=== PATIENT | female | born 1950 | race Caucasian/White ===

== ENCOUNTER → 2016-09-13 | Outpatient (CLI) | payer MEDICARE ==
--- NOTE | 2016-09-13 15:20 | CTL ---
EXAMINATION TYPE: CT Low Dose Lung DATE OF EXAM ORDERED: 09/13/2016 1:58 PM COMPARISON: None HISTORY: . Low Dose CT Lung Screening CT DLP: [address] CTDI: 2.6 mGy IV CONTRAST USED: None. SCREENING VISIT: First visit COMPARISON: None. TECHNIQUE: Low dose computed tomography scan was performed through the chest at 1 millimeter thick se ctions and reconstructed images in the coronal plane at [address] DIAGNOSTIC QUALITY: Satisfactory FINDINGS: LUNG NODULES: Not presentLeft lung: no nodules identified.Right lung: no nodules identified. LUNGS: COPD: Severity: None Fibrosis: Severity:None Lymph nodes: None Other findings: None RIGHT PLEURAL SPACE: Effusion: None Calcification: None Thickening: None Pneumothorax: None LEFT PLEURAL SPACE: Effusion: None Calcification: None Thickening: None Pneumothorax: None HEART: Heart Size: Mildly enlarged Coronary calcification: Mild Pericardial effusion: None OTHER FINDINGS: Upper abdomen: No significant abnormality Bony thorax: Degenerative changes Supraclavicular region: No significant abnormalityOther: No significant abnormalityI IMPRESSION: Benign FOLLOW UP CT CHEST RECOMMENDATION: Follow-up screening in one year CT LUNG RAD: Negative LUNG RAD CATEGORY 1
== END ==
LOC: RADCTMAIN 13:30
PROVIDERS: ATTEND Family Medicine
DX: Z12.0 Encounter for screening for malignant neoplasm of stomach (principal); Z87.891 Personal history of nicotine dependence

== ENCOUNTER → 2019-02-21 | Outpatient (CLI) | payer MEDICARE, OTHER ==
[2019-02-21 18:05] LABS: Basophils % (A) 1 %; Eosinophils # (A) 0.3 k/uL (0-0.7); Eosinophils % (A) 5 %; HCT 33.8 % (34.0-46.0); HGB 10.8 gm/dL (11.4-16.0); Lymphocytes # (A) 1.5 k/uL (1.0-4.8); Lymphocytes % (A) 23 %; MCH 30.5 pg (25.0-35.0); MCHC 32.1 g/dL (31.0-37.0); MCV 94.8 fL (80.0-100.0); Mean Platelet Volume 6.9; Monocytes # (A) 0.5 k/uL (0-1.0); Monocytes % (A) 7 %; Neutrophils % (A) 62 %; Platelet Count 216 k/uL (150-450); RBC 3.56 m/uL (3.80-5.40); RDW 14.7 % (11.5-15.5); WBC 6.5 k/uL (3.8-10.6)
[2019-02-22 00:58] LABS: African American GFR (CKD) 60.6 (60.0-200.0); Albumin 4.1 g/dL (3.80-4.90); Albumin/Globulin Ratio 2.16 (1.60-3.17); Anion Gap 4.4 mmol/L (4.00-12.00); BUN/Creat Ratio 26.36 Ratio (12.00-20.00); Calcium 10.2 mg/dL (8.7-10.3); Carbon Dioxide 22.6 mmol/L (21.6-31.8); Globulin 1.9 g/dL (1.6-3.3); Potassium 5.2 mmol/L (3.5-5.5); Total Bilirubin 0.3 mg/dL (0.3-1.2)
== END | disposition home or self-care (01) ==
LOC: LABWHC1 17:20
PROVIDERS: ATTEND Family Medicine
DX: D64.9 Anemia, unspecified (principal); E11.9 Type 2 diabetes mellitus without complications; R53.83 Other fatigue; E03.9 Hypothyroidism, unspecified; Z79.899 Other long term (current) drug therapy
CPT/HCPCS: 36415; 80053; 84443; 85025

== ENCOUNTER → 2019-06-18 | Outpatient (CLI) | payer MEDICARE ==
--- NOTE | 2019-06-18 16:55 | CT ---
EXAMINATION TYPE: CT abdomen pelvis wo con DATE OF EXAM: 06/18/2019 COMPARISON: None HISTORY: Gross hematuria and right sided flank pain. CT DLP: 634 mGycm Automated exposure control for dose reduction was used. The lung bases are clear. There is no pleural effusion. Heart size is normal. There is no pericardial effusion. Liver spleen pancreas appear normal. There are clips from cholecystectomy. Bile ducts are not dilated . There is no adrenal mass. Kidneys have normal size. There is no hydronephrosis. Ureters are not dil ated. Normal aorta is atheromatous. There is no retroperitoneal adenopathy. Bladder distends smoothly . There is right hip prosthesis. There are numerous diverticula in the sigmoid colon. I see no sign o f diverticulitis. There is no mesenteric edema. There is no ascites or free air. Appendix appears normal. There is no s ign of a bowel obstruction. There is posterior fusion surgery in the lower lumbar spine on the right side. There is multilevel lumbar spondylotic changes. There is no compression fracture. IMPRESSION: Sigmoid diverticulosis without diverticulitis. No renal stone or obstruction. Normal appendix. No jabari dence of right-sided renal obstruction. Evaluation of bladder limited due to metal artifact.
== END | disposition home or self-care (01) ==
LOC: RADCTMAIN 16:14
PROVIDERS: ATTEND Family Medicine
DX: K57.30 Diverticulosis of large intestine without perforation or abscess without bleeding (principal); R31.0 Gross hematuria
CPT/HCPCS: 74176

== ENCOUNTER 2019-06-21 15:46 | Emergency (ER) | payer MEDICARE ==
[2019-06-21] MEDS ORDERED: SODIUM CHLORIDE 0.9% 1,000 ML IV STA (16:25)
--- NOTE | 2019-06-21 16:28 | ED ---
General Adult HPI - General Chief complaint: GI Bleed Stated complaint: need blood transfusion Time Seen by Provider: 06/21/19 15:50 Source: patient Mode of arrival: ambulatory Limitations: no limitations - History of Present Illness Initial comments: The patient is a 68-year-old female with past medical history of diabetes, COPD and hypertension who presents to the emergency department with reported low hemoglobin. Earlier this week she began having significant hematuria. She follow-up with her primary care physician who completed laboratory studies. He also completed a urinalysis which showed that the patient had a urinary tract infection. She was placed on Bactrim. They sent her for a CT for abdomen and pelvis because of the hematuria. It did not demonstrate any kidney stones or masses. Has been taking medications as directed. Then received a call from her primary care doctor who stated that her hemoglobin was 7.3. They instructed her to go into the emergency department for further evaluation. She denies a previous history of anemia. She started herself on iron tablets. States that her urine has cleared up. Culture was sent from the primary care physician office and the patient was also told today that it was not sensitive to Bactrim. 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 She denies any black or tarry stools. No abdominal pain. Has had 2 previous endoscopies. Reported history of polyps however denies any history of peptic ulcer disease. She does feel short of breath and lightheaded. She denies any chest pain. Denies any fevers or chills. There are no alleviating, precipitating or modifying factors - Related Data Allergies Allergy/AdvReac Type Severity Reaction Status Date / Time No Known Allergies Allergy Verified 06/21/19 15:54 Review of Systems ROS Statement: Those systems with pertinent positive or pertinent negative responses have been documented in the HPI. ROS Other: All systems not noted in ROS Statement are negative. Past Medical History Past Medical History: COPD, Diabetes Mellitus, Hypertension History of Any Multi-Drug Resistant Organisms: None Reported Past Surgical History: Cholecystectomy, Joint Replacement, Orthopedic Surgery Additional Past Surgical History / Comment(s): Back Past Psychological History: No Psychological Hx Reported Smoking Status: Current every day smoker Past Alcohol Use History: None Reported Past Drug Use History: None Reported General Exam Limitations: no limitations General appearance: alert, in no apparent distress Head exam: Present: atraumatic, normocephalic, normal inspection Eye exam: Present: normal appearance, PERRL, EOMI. Absent: scleral icterus, conjunctival injection, periorbital swelling ENT exam: Present: normal exam, mucous membranes moist Neck exam: Present: normal inspection. Absent: tenderness, meningismus, lymphadenopathy Respiratory exam: Present: normal lung sounds bilaterally. Absent: respiratory distress, wheezes, rales, rhonchi, stridor Cardiovascular Exam: Present: regular rate, normal rhythm, normal heart sounds. Absent: systolic murmur, diastolic murmur, rubs, gallop, clicks GI/Abdominal exam: Present: soft, normal bowel sounds. Absent: distended, tenderness, guarding, rebound, rigid Extremities exam: Present: normal inspection, full ROM, normal capillary refill. Absent: tenderness, pedal edema, joint swelling, calf tenderness Back exam: Present: normal inspection Neurological exam: Present: alert, oriented X3, CN II-XII intact Psychiatric exam: Present: normal affect, normal mood Skin exam: Present: warm, dry, intact, normal color. Absent: rash Course Vital Signs 06/21/19 06/21/19 06/21/19 15:51 19:14 19:25 Temperature 97.8 F 98.2 F 98.0 F Pulse Rate 64 61 59 L Respiratory 16 18 16 Rate Blood Pressure 110/44 139/63 139/63 O2 Sat by Pulse 99 Oximetry 06/21/19 06/21/19 19:55 21:33 Temperature 98.7 F 98.2 F Pulse Rate 70 72 Respiratory 20 20 Rate Blood Pressure 139/48 137/78 O2 Sat by Pulse 98 Oximetry Medical Decision Making - Medical Decision Making Upon arrival the patient is placed into room 7. A thorough history and physical exam is performed. PIV was established. I did perform a rectal exam which does not demonstrate any gross blood. I did recommend repeating laboratory studies for which the patient did agree to. CBC does return and hemoglobin is 7.1. PTT 21.9. INR 0.9. Glucose is low at 50. Iron 32. Iron percent saturation is 6.9. Urinalysis shows trace protein, moderate blood, large leukocyte Estrace, 59 red blood cells, greater than 182 white blood cells many white blood cell clumps and moderate bacteria and rare mucous. Fecal occult is negative. I did provide the patient with a dose of Rocephin. As the patient is symptomatic from her acute blood loss anemia I did provide her with one unit of blood. The patient did have a CT of her abdomen and pelvis performed which failed to demonstrate the bladder because of her hip replacement. I therefore completed a ladder ultrasound which demonstrates no evidence of a bladder mass. I reevaluated the patient after blood transfusion. She states that she does feel improved. At this time the patient feels comfortable being discharged home and is to follow-up with her primary care physician. She must see them early next week to have a repeat hemoglobin drawn. The patients physician will also have availability for the iron studies were completed. The patient is to continue taking the iron supplementation at home. Return to the emergency room for any new or worsening symptoms. The patient was and discharged home in stable condition - Lab Data Result diagrams: 06/21/19 16:30 06/21/19 16:30 Lab Results 06/21/19 06/21/19 06/21/19 Range/Units 16:20 16:30 16:30 WBC 7.8 (3.8-10.6) k/uL RBC 2.80 L (3.80-5.40) m/uL Hgb 7.1 L (11.4-16.0) gm/dL Hct 23.4 L (34.0-46.0) % MCV 83.7 (80.0-100.0) fL MCH 25.5 (25.0-35.0) pg MCHC 30.4 L (31.0-37.0) g/dL RDW 17.7 H (11.5-15.5) % Plt Count 259 (150-450) k/uL Neutrophils % 66 % Lymphocytes % 19 % Monocytes % 8 % Eosinophils % 3 % Basophils % 1 % Neutrophils # 5.1 (1.3-7.7) k/uL Lymphocytes # 1.5 (1.0-4.8) k/uL Monocytes # 0.6 (0-1.0) k/uL Eosinophils # 0.2 (0-0.7) k/uL Basophils # 0.0 (0-0.2) k/uL Hypochromasia Marked Poikilocytosis Slight Anisocytosis Slight PT (9.0-12.0) sec INR (<1.2) APTT (22.0-30.0) sec Sodium 138 (137-145) mmol/L Potassium 4.7 (3.5-5.1) mmol/L Chloride 111 H (98-107) mmol/L Carbon Dioxide 19 L (22-30) mmol/L Anion Gap 8 mmol/L BUN 27 H (7-17) mg/dL Creatinine 1.11 H (0.52-1.04) mg/dL Est GFR (CKD-EPI)AfAm 60 (>60 ml/min/1.73 sqM) Est GFR (CKD-EPI)NonAf 52 (>60 ml/min/1.73 sqM) Glucose 50 L (74-99) mg/dL Calcium 9.9 (8.4-10.2) mg/dL Iron 32 L (50-170) ug/dL TIBC 460 (228-460) ug/dL % Saturation 6.96 L (12.00-45.00) Total Bilirubin 0.3 (0.2-1.3) mg/dL AST 29 (14-36) U/L ALT 17 (4-34) U/L Alkaline Phosphatase 47 (38-126) U/L Total Protein 6.6 (6.3-8.2) g/dL Albumin 3.9 (3.5-5.0) g/dL Urine Color Urine Appearance (Clear) Urine pH (5.0-8.0) Ur Specific Glidden (1.001-1.035) Urine Protein (Negative) Urine Glucose (UA) (Negative) Urine Ketones (Negative) Urine Blood (Negative) Urine Nitrite (Negative) Urine Bilirubin (Negative) Urine Urobilinogen (<2.0) mg/dL Ur Leukocyte Esterase (Negative) Urine RBC (0-5) /hpf Urine WBC (0-5) /hpf Urine WBC Clumps (None) /hpf Ur Squamous Epith Cells (0-4) /hpf Urine Bacteria (None) /hpf Hyaline Casts (0-2) /lpf Urine Mucus (None) /hpf Stool Occult Blood (Negative) Blood Type A Positive Blood Type Recheck A Pos Bld Type Recheck Status No Antibody Screen NEGATIVE Crossmatch See Detail Spec Expiration Date 06/24/2019 - 232906/21/19 06/21/19 06/21/19 Range/Units 16:30 16:30 16:30 WBC (3.8-10.6) k/uL RBC (3.80-5.40) m/uL Hgb (11.4-16.0) gm/dL Hct (34.0-46.0) % MCV (80.0-100.0) fL MCH (25.0-35.0) pg MCHC (31.0-37.0) g/dL RDW (11.5-15.5) % Plt Count (150-450) k/uL Neutrophils % % Lymphocytes % % Monocytes % % Eosinophils % % Basophils % % Neutrophils # (1.3-7.7) k/uL Lymphocytes # (1.0-4.8) k/uL Monocytes # (0-1.0) k/uL Eosinophils # (0-0.7) k/uL Basophils # (0-0.2) k/uL Hypochromasia Poikilocytosis Anisocytosis PT 9.7 (9.0-12.0) sec INR 0.9 (<1.2) APTT 21.9 L (22.0-30.0) sec Sodium (137-145) mmol/L Potassium (3.5-5.1) mmol/L Chloride (98-107) mmol/L Carbon Dioxide (22-30) mmol/L Anion Gap mmol/L BUN (7-17) mg/dL Creatinine (0.52-1.04) mg/dL Est GFR (CKD-EPI)AfAm (>60 ml/min/1.73 sqM) Est GFR (CKD-EPI)NonAf (>60 ml/min/1.73 sqM) Glucose (74-99) mg/dL Calcium (8.4-10.2) mg/dL Iron (50-170) ug/dL TIBC (228-460) ug/dL % Saturation (12.00-45.00) Total Bilirubin (0.2-1.3) mg/dL AST (14-36) U/L ALT (4-34) U/L Alkaline Phosphatase (38-126) U/L Total Protein (6.3-8.2) g/dL Albumin (3.5-5.0) g/dL Urine Color Yellow Urine Appearance Cloudy H (Clear) Urine pH 6.0 (5.0-8.0) Ur Specific Glidden 1.011 (1.001-1.035) Urine Protein Trace H (Negative) Urine Glucose (UA) Negative (Negative) Urine Ketones Negative (Negative) Urine Blood Moderate H (Negative) Urine Nitrite Negative (Negative) Urine Bilirubin Negative (Negative) Urine Urobilinogen <2.0 (<2.0) mg/dL Ur Leukocyte Esterase Large H (Negative) Urine RBC 59 H (0-5) /hpf Urine WBC >182 H (0-5) /hpf Urine WBC Clumps Many H (None) /hpf Ur Squamous Epith Cells <1 (0-4) /hpf Urine Bacteria Moderate H (None) /hpf Hyaline Casts 2 (0-2) /lpf Urine Mucus Rare H (None) /hpf Stool Occult Blood Negative (Negative) Blood Type Blood Type Recheck Bld Type Recheck Status Antibody Screen Crossmatch Spec Expiration Date Disposition Clinical Impression: Acute UTI, Hematuria, Acute blood loss anemia Disposition: HOME SELF-CARE Condition: Stable Instructions (If sedation given, give patient instructions): Urinary Tract Infection in Women (ED), Blood Transfusion (DC) Additional Instructions: Please follow-up with your primary care doctor early next week for a repeat blood draw. You will also need a repeat urinalysis. Take the Macrobid as directed. Return to the emergency room for any new or worsening symptoms Is patient prescribed a controlled substance at d/c from ED?: No Referrals: Percy Smith MD [Primary Care Provider] - 1-2 days Time of Disposition: 18:31
[2019-06-21 16:45] LABS: Anisocytosis Slight; Basophils % (A) 1 %; Eosinophils # (A) 0.2 k/uL (0-0.7); Eosinophils % (A) 3 %; HCT 23.4 % (34.0-46.0); HGB 7.1 gm/dL (11.4-16.0); Hypochromasia Marked; Lymphocytes # (A) 1.5 k/uL (1.0-4.8); Lymphocytes % (A) 19 %; MCH 25.5 pg (25.0-35.0); MCHC 30.4 g/dL (31.0-37.0); MCV 83.7 fL (80.0-100.0); Mean Platelet Volume 7.9; Monocytes # (A) 0.6 k/uL (0-1.0); Monocytes % (A) 8 %; Neutrophils # (A) 5.1 k/uL (1.3-7.7); Neutrophils % (A) 66 %; Platelet Count 259 k/uL (150-450); Poikilocytosis Slight; RDW 17.7 % (11.5-15.5); WBC 7.8 k/uL (3.8-10.6)
[2019-06-21 16:54] LABS: Albumin 3.9 g/dL (3.5-5.0); Calcium 9.9 mg/dL (8.4-10.2); Potassium 4.7 mmol/L (3.5-5.1); Total Bilirubin 0.3 mg/dL (0.2-1.3); Total Protein 6.6 g/dL (6.3-8.2)
[2019-06-21 17:11] LABS: INR 0.9 (<1.2); Partial Thromboplastin Time 21.9 sec (22.0-30.0); Prothrombin Time 9.7 sec (9.0-12.0)
[2019-06-21 18:00] LABS: Appearance,Urine Cloudy (Clear); Bacteria,Urine Moderate /hpf; Bilirubin,Urine Negative (Negative); Blood,Urine Moderate (Negative); Color,Urine Yellow; Glucose,Urine (UA) Negative (Negative); Hyaline Casts,Urine 2 /lpf (0-2); Ketones,Urine Negative (Negative); Leukocyte Esterase,Urine Large (Negative); Mucus,Urine Rare /hpf; Nitrite,Urine Negative (Negative); Protein,Urine Trace (Negative); RBC,Urine 59 /hpf (0-5); Specific Gravity,Urine 1.011 (1.001-1.035); Squamous Epithelial Cell,Urine <1 /hpf (0-4); Urobilinogen,Urine <2.0 mg/dL (<2.0); WBC,Urine >182 /hpf (0-5)
--- NOTE | 2019-06-21 18:18 | US ---
EXAMINATION TYPE: US bladder DATE OF EXAM: 06/21/2019 COMPARISON: CT 2019 CLINICAL HISTORY: hematuria with ABLA. Hematuria EXAM MEASUREMENTS: Post Void Residual Volume: 17.5 mL Color Doppler performed to assess ureteral jets. Bilateral Jets seen: yes Normal Post Void Residual (less than 50ml): yes IMPRESSION: There is satisfactory bladder emptying. Bilateral ureteral jets. No demonstrated abnormality. No evid ence of a bladder mass.
[2019-06-21] MEDS ORDERED: cefTRIAXone IN SWFI 1,000 MG/10 ML SYRINGE IVP STA (18:21)
[2019-06-21 21:10] VITALS: RESP 20
[2019-06-21 21:35] VITALS: BP 137/78; PULSE 72; TEMP 98.2
[2019-06-21 23:54] LABS: % Iron Saturation 6.96 (12.00-45.00)
== END 2019-06-21 21:33 | disposition home or self-care (01) ==
LOC: EC 15:46
DX: D62 Acute posthemorrhagic anemia (principal); N39.0 Urinary tract infection, site not specified; Z96.649 Presence of unspecified artificial hip joint; F17.200 Nicotine dependence, unspecified, uncomplicated
CPT/HCPCS: 36415; 86900; 86901; 80053; 83540; 83550; 85025; 85610; 85730; 86850; 86920; 82272; 81001; 87086; 87077; 87186; 76857; 99285; 96374; 96361; P9016; J0696; 36430

== ENCOUNTER → 2019-06-21 | Outpatient (CLI) | payer MEDICARE ==
[2019-06-21 13:19] LABS: Anisocytosis Slight; Basophils % (A) 0 %; Eosinophils # (A) 0.2 k/uL (0-0.7); Eosinophils % (A) 3 %; HCT 24.9 % (34.0-46.0); HGB 7.3 gm/dL (11.4-16.0); Hypochromasia Marked; Lymphocytes % (A) 13 %; MCH 24.8 pg (25.0-35.0); MCHC 29.2 g/dL (31.0-37.0); MCV 84.8 fL (80.0-100.0); Mean Platelet Volume 7.9; Monocytes # (A) 0.6 k/uL (0-1.0); Monocytes % (A) 8 %; Neutrophils % (A) 74 %; Platelet Count 244 k/uL (150-450); Poikilocytosis Slight; RBC 2.94 m/uL (3.80-5.40); RDW 17.6 % (11.5-15.5); WBC 8.1 k/uL (3.8-10.6)
== END | disposition home or self-care (01) ==
LOC: LABWHC1 12:31
PROVIDERS: ATTEND Nurse Practitioner Family
DX: D64.9 Anemia, unspecified (principal)
CPT/HCPCS: 36415; 85025

== ENCOUNTER → 2019-06-28 | Outpatient (CLI) | payer MEDICARE ==
--- NOTE | 2019-06-28 11:13 | US ---
EXAMINATION TYPE: US kidneys/renal and bladder DATE OF EXAM: 06/28/2019 COMPARISON: CT 2019 CLINICAL HISTORY: D94.4 abnormal renal function. EXAM MEASUREMENTS: Right Kidney: 9.6 x 4.0 x 5.1 cm Left Kidney: 9.5 x 5.7 x 5.3 cm Right Kidney: No hydronephrosis or masses seen Left Kidney: No hydronephrosis or masses seen Bladder: wnl Bilateral Jets seen: No IMPRESSION: 1. Normal renal ultrasound
== END | disposition home or self-care (01) ==
LOC: RADUSMAIN 09:00
PROVIDERS: ATTEND Family Medicine
DX: R94.4 Abnormal results of kidney function studies (principal); D64.9 Anemia, unspecified
CPT/HCPCS: 76770

== ENCOUNTER → 2019-06-29 | Outpatient (CLI) | payer MEDICARE ==
[2019-06-29 13:55] LABS: Creatinine 24 Hour,Urine 878.4 mg/24hr (800.0-1800.0)
[2019-06-29 22:49] LABS: Total Volume 24 Hour,Urine 1600 mL
[2019-06-29 23:40] LABS: Total Protein 24 Hour,Urine 121.6 mg/24Hr
== END | disposition home or self-care (01) ==
LOC: LABWHC1 12:08
PROVIDERS: ATTEND Nurse Practitioner Family
DX: E11.65 Type 2 diabetes mellitus with hyperglycemia (principal); E11.22 Type 2 diabetes mellitus with diabetic chronic kidney disease; N18.2 Chronic kidney disease, stage 2 (mild)
CPT/HCPCS: 36415; 81050; 82575; 84156

== ENCOUNTER 2020-03-07 19:01 | Emergency (ER) | payer MEDICARE ==
--- NOTE | 2020-03-07 19:36 | ED ---
Lower Extremity Injury HPI - General Chief Complaint: Extremity Injury, Lower Stated Complaint: fall, knee injury Time Seen by Provider: 03/07/20 19:21 Source: patient, family Mode of arrival: wheelchair Limitations: no limitations - History of Present Illness Initial Comments: 69-year-old female patient presents to the emergency department today for adrianne luation of left knee pain. Patient states around 3:00 this afternoon she was walking to her bedroom and she tripped on a cord and fell forward landing on the left knee. Patient states all the way fell onto the knee. Patient denies hitting her head or losing consciousness with the injury. She denies any neck or back pain. Patient states she did initially did have some numbness and tingling sensation to the lower leg on the left side but that did resolve. Patient states throughout the day the knee has become more swollen. States she is having significant discomfort to the knee. She states she is able to bear weight. She is able to bend it but it does increase the pain when she flexes it. Denies any previous injury or surgery to this knee. Patient denies any headache, chest pain, shortness of breath, dizziness, weakness, abdominal pain, nausea, vomiting, or difficulties with bowel movements or urination. - Related Data Allergies Allergy/AdvReac Type Severity Reaction Status Date / Time No Known Allergies Allergy Verified 03/07/20 19:20 Review of Systems ROS Statement: Those systems with pertinent positive or pertinent negative responses have been documented in the HPI. ROS Other: All systems not noted in ROS Statement are negative. Past Medical History Past Medical History: COPD, Diabetes Mellitus, Hypertension History of Any Multi-Drug Resistant Organisms: None Reported Date of last positivie culture/infection: 06/21/19 MDRO Source:: ESBL URINE Past Surgical History: Cholecystectomy, Joint Replacement, Orthopedic Surgery Additional Past Surgical History / Comment(s): Back Past Psychological History: No Psychological Hx Reported Smoking Status: Current every day smoker Past Alcohol Use History: None Reported Past Drug Use History: None Reported General Exam Limitations: no limitations General appearance: alert, in no apparent distress, other (This is a well- developed, well-nourished adult female patient in no acute distress. Vital signs upon presentation are temperature 98.8F, pulse 69, respirations 18, blood pressure 106/48, pulse ox 97% on room air.) Neck exam: Present: normal inspection, full ROM, other (Nontender, no step-off, no deformity to firm midline palpation of the posterior cervical spine. Full range of motion without pain or limitation.). Absent: tenderness, meningismus, lymphadenopathy Respiratory exam: Present: normal lung sounds bilaterally. Absent: respiratory distress, wheezes, rales, rhonchi, stridor Cardiovascular Exam: Present: regular rate, normal rhythm, normal heart sounds. Absent: systolic murmur, diastolic murmur, rubs, gallop, clicks GI/Abdominal exam: Present: soft, normal bowel sounds. Absent: distended, tenderness, guarding, rebound, rigid Extremities exam: Present: full ROM, tenderness (Left anterior knee), normal capillary refill, other (There is left knee soft tissue swelling, ecchymosis. Skin is otherwise pink, warm, dry. Cap refills less than 3 seconds. Pedal and posttibial pulses are 2+ and equal bilaterally.). Absent: normal inspection, pedal edema, joint swelling, calf tenderness Back exam: Present: normal inspection, other (Nontender, no step-off, no deformity to firm midline palpation of the thoracic and lumbar vertebrae. Full range of motion without pain or limitation.). Absent: vertebral tenderness Neurological exam: Present: alert, oriented X3, CN II-XII intact Psychiatric exam: Present: normal affect, normal mood Skin exam: Present: warm, dry, intact, normal color. Absent: rash Course Vital Signs 03/07/20 03/07/20 19:15 20:40 Temperature 98.8 F 98.3 F Pulse Rate 69 74 Respiratory 18 16 Rate Blood Pressure 106/48 115/65 O2 Sat by Pulse 97 98 Oximetry Medical Decision Making - Medical Decision Making 69-year-old female patient presents to the emergency department today for eval uation of left knee pain after a fall. Physical examination did reveal significant soft tissue swelling and ecchymosis noted over the left knee. She did have full range of motion intact. She is able to bear weight. Neurovascular status is intact. X-rays were obtained and showed soft tissue swelling. Osteoarthritis. Chondrocalcinosis. Also reported this could be a prepatellar bursitis, symptoms are not consistent with this, is consistent with trauma. We did place an Nick wrap. She'll be instructed take, Motrin for pain control. She is educated regarding rest, ice, elevation. She is instructed to follow-up with her primary care physician for recheck in 1-2 days. She verbalizes understanding and agrees with this plan. - Radiology Data Radiology results: report reviewed, image reviewed 3 views of the left knee are obtained. Report was reviewed in its entirety. Impression by Dr. Benjamin shows soft tissue swelling. This could be prepate llar bursitis. No fracture. Mild chondrocalcinosis. Mild osteoarthritis. Disposition Clinical Impression: Contusion of left knee Disposition: HOME SELF-CARE Condition: Good Instructions (If sedation given, give patient instructions): Contusion in Adults (ED), Knee Pain (ED) Additional Instructions: Rest, ice, elevate the left knee. Use nick wrap for support and to help with swelling. Apply ice 20 minutes at a time at least 4 times daily. Take medic ations as needed for pain control. Follow-up with your primary care physician for recheck in 1-2 days. Return to the emergency department immediately for any new, worsening, or concerning symptoms. Is patient prescribed a controlled substance at d/c from ED?: No Referrals: Percy Smith MD [Primary Care Provider] - 1-2 days Time of Disposition: 20:36
--- NOTE | 2020-03-07 19:54 | XR ---
EXAMINATION TYPE: XR knee complete LT DATE OF EXAM: 03/07/2020 COMPARISON: NONE HISTORY: Knee pain TECHNIQUE: 3 views FINDINGS: There is soft tissue swelling anterior to the patella on the lateral view. There is spurrin g of the medial femoral and tibial condyles. There is calcification of the menisci. IMPRESSION: Soft tissue swelling. This could be patella bursitis. No fracture. Mild chondrocalcinosis. Mild osteoarthritis.
[2020-03-07] MEDS ORDERED: ACET/COD 300 MG/30 MG STARTER PACK 6 TAB BTL PO STA (20:29)
[2020-03-07 21:03] VITALS: BP 115/65; PULSE 74; RESP 16; TEMP 98.3
== END 2020-03-07 20:40 | disposition home or self-care (01) ==
LOC: EC 19:01
DX: S80.02XA Contusion of left knee, initial encounter (principal); M17.12 Unilateral primary osteoarthritis, left knee; M11.262 Other chondrocalcinosis, left knee; F17.200 Nicotine dependence, unspecified, uncomplicated; W01.0XXA Fall on same level from slipping, tripping and stumbling without subsequent striking against object, initial encounter; Y93.01 Activity, walking, marching and hiking; Y92.003 Bedroom of unspecified non-institutional (private) residence as the place of occurrence of the external cause
CPT/HCPCS: 99283

== ENCOUNTER → 2020-11-10 | Outpatient (CLI) | payer MEDICARE ==
[~2020-11-10] MED LIST: DOBUTamine DRIP for NUC MED 500 MG in DEXTROSE/WATER 1 250ML.BAG IV PRN
--- NOTE | 2020-11-11 14:04 | EST ---
EXERCISE STRESS DATE OF SERVICE: INDICATION: Chest pain. AGE: 69 SEX: F HT: @@ WT: @@ PROTOCOL: @@ STAGE: @@ DURATION OF EXERCISE: @@ HEART RATE REST: @@ BLOOD PRESSURE REST: @@ MAXIMUM HEART RATE ACHIEVED: @@ MAXIMUM BLOOD PRESSURE: @@ 85% MPHR: @@ 100% MPHR: @@ METS: @@ STRESS DATA: Heart rate 69, pressure is 170/33 mm Hg. Baseline EKG showed sinus mechanism. Dobutamine infusion at a dose of 10 mcg/kg per minute was initiated and increased to 40 mcg/kg per minute per protocol with max heart rate was 141 which is about 92% of maximum predicted heart rate. Maximum pressure was 154/78 mmHg. Clinically the patient has no symptoms. The EKG showed about 0.[address]- segment changes. ANALYSIS: On echocardiogram images from parasternal long axis view, parasternal short axis, apical 4 chamber and apical 2 chamber obtained as the baseline images, at low dose dobutamine infusion, at peak heart rate as well as on recovery and the echocardiogram images did not show any evidence of wall motion abnormalities concerning for ischemia. CONCLUSION: 1. Mild EKG changes in response to dobutamine. 2. Normal echocardiogram in response to dobutamine. MMODL / IJN: [id number] /
== END | disposition home or self-care (01) ==
LOC: RADNMMAIN 10:05
PROVIDERS: ATTEND Family Medicine
DX: R07.9 Chest pain, unspecified (principal)
CPT/HCPCS: 93351

== ENCOUNTER → 2022-09-29 | Outpatient (CLI) | payer MEDICARE ==
--- NOTE | 2022-09-29 15:39 | CTL ---
EXAMINATION TYPE: CT Low Dose Lung DATE OF EXAM ORDERED: 09/29/2022 HISTORY: . Lung cancer screening CT DLP: 88.[address] CTDI: 2.7 mGy Automated exposure control for dose reduction was used. SCREENING VISIT: COMPARISON: 09/13/2016 TECHNIQUE: Low dose computed tomography scan was performed through the chest at 1 mm thick sections a nd reconstructed images in multiple planes at 1 mm and [address] DIAGNOSTIC QUALITY: Satisfactory FINDINGS: The heart is enlarged and there is coronary artery calcifications. Atherosclerotic changes of the aor ta but no evidence aneurysm. The heart is mildly enlarged. There is a trace of pericardial fluid. Structures of the upper abdomen demonstrate questionable wall thickening in the left colon which coul d be related to partial volume averaging and limited included in the [id number]. Correlate with th e patient's symptoms. Mild emphysematous changes are seen. There is no pleural effusion, pneumothorax or focal pneumonia. T here is no pathologic adenopathy. Hypertrophic and degenerative changes of the spine. There is a 4 mm subpleural nodule right upper lobe axial image 41 , There is a 1 mm nodule right middle lobe axial image 23 There is a 2 mm subpleural nodule axial image 26. IMPRESSION: 1. There are sub-5 mm pulmonary nodules retrospectively stable from prior exam and have a benign appe arance. 2. Mild COPD. 3. Cardiomegaly with coronary artery calcification 4. Questionable thickening of the wall the left colon on the final image which is only partially incl uded in the [id number] correlate with the patient's clinical symptoms now warranted with CT of the abdomen. CT LUNG RAD AND CT CHEST RECOMMENDATION: Lung-Rad 2 Benign Appearance or Behavior: Continue annual sc reening with LDCT in 12 months. S Modifier (other clinically significant findings): S
== END | disposition home or self-care (01) ==
LOC: RADCTMAIN 15:06
PROVIDERS: ATTEND Family Medicine
DX: Z12.2 Encounter for screening for malignant neoplasm of respiratory organs (principal); J44.9 Chronic obstructive pulmonary disease, unspecified; I25.10 Atherosclerotic heart disease of native coronary artery without angina pectoris; R91.8 Other nonspecific abnormal finding of lung field; I51.7 Cardiomegaly; Z87.891 Personal history of nicotine dependence
CPT/HCPCS: 71271

== ENCOUNTER → 2022-11-07 | Outpatient (CLI) | payer MEDICARE ==
--- NOTE | 2022-11-08 09:57 | CA ---
Transthoracic Echo Report Name: Mary Lou Lopez Age: 71 Gender: F : 1950 Exam Date: 11/07/2022 13:38 Exam Location: [place] [facility] Ht (in): 63 Wt (lb): 151 Ordering Physician: Percy Smith MD Attending/Referring Phys: Priyanka Mcdonald [facility] Manager Underwriting Olga Tiwari RDCS Procedure CPT: Indications: I51.9 cardiomegaly Cardiac Hx: Technical Quality: Good Contrast 1: Total Dose (mL): Contrast 2: Total Dose (mL): MEASUREMENTS (Male / Female) Normal Values 2D ECHO LV Diastolic Diameter PLAX 4.4 cm 4.2 - 5.9 / 3.9 - 5.3 cm LV Systolic Diameter PLAX 3.1 cm IVS Diastolic Thickness 1.3 cm 0.6 - 1.0 / 0.6 - 0.9 cm LVPW Diastolic Thickness 1.2 cm 0.6 - 1.0 / 0.6 - 0.9 cm LV Relative Wall Thickness 0.6 RV Internal Dim ED PLAX 3.2 cm LVOT Diameter 2.2 cm LA Systolic Diameter LX 3.8 cm 3.0 - 4.0 / 2.7 - 3.8 cm LA Area 4C View 23.4 cm??? <= 20 cm??? LA Area 2C View 22.6 cm??? <= 20 cm??? M-MODE Aortic Root Diameter MM 3.1 cm LA Systolic Diameter MM 1.6 cm LA Ao Ratio MM 0.5 DOPPLER AV Peak Velocity 204.3 cm/s AV Peak Gradient 16.7 mmHg AV Mean Velocity 138.3 cm/s AV Mean Gradient 8.4 mmHg AV Velocity Time Integral 53.6 cm AI Peak Velocity 456.0 cm/s AI Peak Gradient 83.2 mmHg AI Pressure Half Time 491.1 ms LVOT Peak Velocity 131.5 cm/s LVOT Peak Gradient 6.9 mmHg AV Area Cont Eq pk 2.5 cm??? Mitral E Point Velocity 135.9 cm/s Mitral A Point Velocity 120.2 cm/s Mitral E to A Ratio 1.1 MV Deceleration Time 228.3 ms MV E' Velocity 8.1 cm/s Mitral E to MV E' Ratio 16.8 TR Peak Velocity 306.3 cm/s TR Peak Gradient 37.5 mmHg Right Ventricular Systolic Press 47.5 mmHg FINDINGS Left Ventricle Left ventricular ejection fraction is estimated at 60-65 %. Left ventricular cavity size normal. Moderately increased septal wall thickness. Mildly increased posterior wall thickness. Right Ventricle Normal right ventricular size and function. Moderate pulmonary hypertension. Right Atrium Normal right atrial size. Left Atrium Normal left atrial size. Mildly increased left atrial area. Mitral Valve Mitral valve thickened. Mild mitral annular calcification. Mild mitral regurgitation. Aortic Valve Trileaflet aortic valve. Aortic valve sclerosis. Mild aortic stenosis with a peak gradient of 17 mmHg and a mean gradient of 8 mmHg. Mild aortic regurgitation. Tricuspid Valve Structurally normal tricuspid valve. Mild tricuspid regurgitation. Pulmonic Valve Structurally normal pulmonic valve. No pulmonic regurgitation. Pericardium Normal pericardium. No pericardial effusion. Aorta Normal size aortic root and proximal ascending aorta. CONCLUSIONS Normal LV systolic function Aortic sclerosis with mild aortic stenosis and mild aortic insufficiency Mitral annular calcification was mild MR Previewed by: Dr. Rob Bridges MD (Electronically Signed) Final Date: 08 November 2022 09:56
== END | disposition home or self-care (01) ==
LOC: RADECHMAIN 13:32
PROVIDERS: ATTEND Family Medicine
DX: I08.3 Combined rheumatic disorders of mitral, aortic and tricuspid valves (principal); I27.20 Pulmonary hypertension, unspecified
CPT/HCPCS: 93306

== ENCOUNTER → 2023-11-15 | Outpatient (CLI) | payer MEDICARE ==
[2023-11-15 15:52] LABS: Anisocytosis Slight; Basophils % (A) 1 %; Eosinophils # (A) 0.3 k/uL (0-0.7); Eosinophils % (A) 5 %; HCT 29.4 % (34.0-46.0); HGB 8.7 gm/dL (11.4-16.0); Hypochromasia Marked; Lymphocytes # (A) 1.2 k/uL (1.0-4.8); Lymphocytes % (A) 18 %; MCH 26.1 pg (25.0-35.0); MCHC 29.5 g/dL (31.0-37.0); MCV 88.5 fL (80.0-100.0); Mean Platelet Volume 8.3; Monocytes # (A) 0.5 k/uL (0-1.0); Monocytes % (A) 7 %; Neutrophils # (A) 4.6 k/uL (1.3-7.7); Neutrophils % (A) 68 %; Platelet Count 259 k/uL (150-450); RBC 3.32 m/uL (3.80-5.40); RDW 16.9 % (11.5-15.5); WBC 6.8 k/uL (3.8-10.6)
[2023-11-15 16:02] LABS: African American GFR (CKD) >90 (>60 ml/min/1.73 sqM); Blood Urea Nitrogen 28 mg/dL (7-17); Non-African American GFR(CKD) 81 (>60 ml/min/1.73 sqM)
[2023-11-15 16:10] LABS: INR 0.9 (<1.2)
--- NOTE | 2023-11-15 18:14 | CT ---
EXAMINATION TYPE: CT brain wo/w con DATE OF EXAM: 11/15/2023 COMPARISON: None. HISTORY: loss of balance, dizziness, TIA CT DLP: 2216.8 mGycm Automated exposure control for dose reduction was used. CONTRAST: CT scan of the head is performed without and with IV Contrast, patient injected with 100 mL of Isovue 300. FINDINGS: There is no abnormal enhancing mass or midline shift identified. There is mild to moderate ventricula r and sulcal prominence. There is mild to moderate low-attenuation in the deep and periventricular wh ite matter. The globes are intact and the visualized sinuses are clear. No suspicious opacification o f the mastoid air cells. IMPRESSION: There is [id number] diffuse cerebral atrophy and probable chronic small vessel isch emic change noted. No abnormal enhancing masses are present.
== END | disposition home or self-care (01) ==
LOC: RADCTMAIN 15:14
PROVIDERS: ATTEND Family Medicine
DX: G31.9 Degenerative disease of nervous system, unspecified (principal); G45.9 Transient cerebral ischemic attack, unspecified; R26.9 Unspecified abnormalities of gait and mobility; R42 Dizziness and giddiness
CPT/HCPCS: 82565; 84520; 85025; 85610; 70470; 36415; Q9967

== ENCOUNTER → 2023-11-29 | Outpatient (CLI) | payer MEDICARE ==
--- NOTE | 2023-12-07 08:13 | CTL ---
EXAMINATION TYPE: CT Low Dose Lung DATE OF EXAM: 11/29/2023 2:51 PM CLINICAL INDICATION:Female, 72 years old with history of Z12.2 LUNG CA SCR F17.210 CURRENT I27.0 PULM HTN; smoker , history of tobacco use. COMPARISON: 09/29/2022. TECHNIQUE: Multiple axial non-contrast scans were obtained from approximately the lung apices through the upper abdomen. Coronal and sagittal reformatted images were obtained. Low dose technique was uti lized. CT DLP: 82 mGycm, Automated exposure control for dose reduction was used. CT Contrast: Contrast used: None Oral contrast used: None FINDINGS: ======== Lack of intravenous contrast and low dose technique limits the evaluation of the vascular and soft ti ssue structures. LUNGS: No evidence of pulmonary fibrosis. No evidence of focal consolidation, pneumothorax or pleural effusion. Centrilobular emphysema changes. Nodules: RUL: 3 mm image 12. RML: None. RLL: None. GISELLE: 5 mm posterior medial series 5 image 9 LLL: None. AIRWAY: Patent and unremarkable. HEART: Size within normal limits.Atherosclerosis of the arterial vasculature. MEDIASTINUM: No gross evidence of adenopathy. VASCULATURE: No aortic aneurysm. MUSCULOSKELETAL: No acute osseous abnormalities SOFT TISSUES/LYMPH NODES: Unremarkable. LOWER NECK: No significant findings. UPPER ABDOMEN: Cholecystectomy clips. IMPRESSION: 1. No clinically significant pulmonary nodules. 2. Mild emphysema. CT LUNG RAD AND CT CHEST RECOMMENDATION: Lung-Rad 2 Benign Appearance or Behavior: Continue annual sc reening with LDCT in 12 months. S Modifier (other clinically significant findings): None Recommend smoking cessation (if current smoker), or continuation of smoking cessation (if prior smoke r). Annual screening for lung cancer with low-dose computed tomography is recommended in adults ages 55 to 77 years who have a 30 pack-year smoking history and currently smoke or have quit within the pa st 15 years. Screening should be discontinued once a person has not smoked for 15 years or develops a health problem that substantially limits life expectancy or the ability or willingness to have curat rena lung surgery. Lung rads 2021 [email or web address]
== END | disposition home or self-care (01) ==
LOC: RADCTMAIN 14:17
PROVIDERS: ATTEND Family Medicine
DX: Z12.2 Encounter for screening for malignant neoplasm of respiratory organs (principal); J43.2 Centrilobular emphysema; F17.210 Nicotine dependence, cigarettes, uncomplicated
CPT/HCPCS: 71271

== ENCOUNTER → 2024-06-20 | Outpatient (CLI) | payer MEDICARE ==
--- NOTE | 2024-06-20 12:31 | BD ---
EXAMINATION TYPE: Axial Bone Density DATE OF EXAM: 06/20/2024 CLINICAL HISTORY: 73 years old Female. ICD-10 CODE: Z78.0 ASYMPTOMATIC MENOPAUSAL STA , Additional H istory: Height: 5 ft 3 in Weight: 150 FRAX RISK QUESTIONS: Alcohol (3 or more units per day): no Family History (Parent hip fracture): no Glucocorticoids (More than 3mos): no (Ex: prednisone, prednisolone, methylprednisolone, dexamethasone, and hydrocortisone). History of Fracture in Adulthood: yes Secondary Osteoporosis: 1. Type 1 Diabetes: no 2. Hyperthyroidism: no 3. Menopause before 45: no 4. Malnutrition: no 5. Chronic liver disease: no Rheumatoid Arthritis: no Current Tobacco Use: yes RISK FACTORS HISTORY OF: Surgery to Spine/Hip(right/left)/Wrist (right/left): rt hip replacement/ laminectomy done 2002/ When: 2010 MEDICATIONS: Thyroid Medications: yes Which medication: synthroid How Lon plus years Osteoporosis Medications: none EXAM MEASUREMENTS: Bone mineral density about the L hip (g/cm2): 1.064 T Score values are as follows: -----L Neck: 0.2 -----L Total: 0.2 Z Score values are as follows: -----L Neck: 1.9 -----L Total: 1.7 baseline Bone mineral density about the L Wrist (g/cm2): 0.717 T Score values are as follows: -----Dist. R+U: 0.2 -----Prox. R+U: 1.1 -----Radius total: 0.7 Z Score values are as follows: -----Dist. R+U: 2.2 -----Prox. R+U: 3.0 -----Radius total: 2.6 baseline FRAX%s: The graph provided illustrates a 6.8 % chance for a major osteoporotic fx and a 0.6 % chance for the hips probability for fx in 10 years time. IMPRESSION: Normal (Values between +1 and -1 indicate normal bone mass). Consider repeating this study in 5 year s or sooner if there is some new clinical indication. NOTE: T-SCORE=SD OF THE YOUNG ADULT MEAN. [facility], , 06/20/2024 12:29 PM
--- NOTE | 2024-06-20 12:43 | MM ---
Reason for Exam: Screening (asymptomatic). Last mammogram was performed 25 year(s) and 11 month(s) ago. Patient History: Menarche at age 14. Patient has no children. Postmenopausal. Risk Values: Zeny 5 year model risk: 1.9%. NCI Lifetime model risk: 5.4%. Prior Study Comparison: 12/09/1988 Screening Mammogram, Unknown. 12/18/1989 Screening Mammogram, Unknown. 07/30/1998 Bilateral Special View Mammogram, [facility]. Tissue Density: The breasts are heterogeneously dense, which may obscure small masses. Findings: Analyzed By CAD. There are a few benign-appearing calcifications. A roughly 15 mm focal asymmetry upper aspect left breast on MLO view is identified. Corresponding abnormality on cc view not clearly seen. Overall Assessment: Incomplete: need additional imaging evaluation, BI-RAD 0 Management: Diagnostic Mammogram of the left breast. Spot 3-D MLO and 3-D true lateral views left breast suspect summation density but must rule out lesion. Patient should continue monthly self-breast exams. A clinical breast exam by your physician is recommended on an annual basis. This exam should not preclude additional follow-up of suspicious palpable abnormalities. Note on Zeny scores and lifetime risk: 1. A Zeny score greater than 3% is considered moderate risk. If this is the case, consider specialist referral to assess eligibility for a risk reducing agent. 2. If overall lifetime risk for the development of breast cancer is 20% or higher, the patient may qualify for future screening with alternating mammogram and breast MRI. [facility], , 06/20/2024 12:39 PM. Electronically signed and approved by: Jose Castillo M.D.
== END | disposition home or self-care (01) ==
LOC: RADMAMWWP 10:14
PROVIDERS: ATTEND Family Medicine
DX: Z12.31 Encounter for screening mammogram for malignant neoplasm of breast (principal); R92.333 Mammographic heterogeneous density, bilateral breasts; Z96.641 Presence of right artificial hip joint; Z78.0 Asymptomatic menopausal state
CPT/HCPCS: 77063; 77067; 77080

== ENCOUNTER → 2024-07-03 | Outpatient (CLI) | payer MEDICARE ==
--- NOTE | 2024-07-03 11:32 | MM ---
Reason for Exam: Additional evaluation requested from abnormal screening. Last screening mammogram was performed less than 1 month ago. Patient History: Menarche at age 14. Patient has no children. Postmenopausal. Risk Values: Zeny 5 year model risk: 1.9%. NCI Lifetime model risk: 5.4%. Prior Study Comparison: 12/18/1989 Screening Mammogram, Unknown. 07/30/1998 Bilateral Special View Mammogram, [facility]. 06/20/2024 Bilateral MG 3D screening mammo w/cad, [facility]. Tissue Density: Left: There are scattered areas of fibroglandular density. Findings: Analyzed By CAD. Area of concern/asymmetry compresses out on spot compression imaging. No suspicious masses, calcifications or distortions. Overall Assessment: Benign, BI-RAD 2 Management: Screening Mammogram of both breasts in 1 year. Results were given to the patient verbally at the time of exam. Patient should continue monthly self-breast exams. A clinical breast exam by your physician is recommended on an annual basis. This exam should not preclude additional follow-up of suspicious palpable abnormalities. Note on Zeny scores and lifetime risk: 1. A Zeny score greater than 3% is considered moderate risk. If this is the case, consider specialist referral to assess eligibility for a risk reducing agent. 2. If overall lifetime risk for the development of breast cancer is 20% or higher, the patient may qualify for future screening with alternating mammogram and breast MRI. [facility], , 07/03/2024 11:27 AM. Electronically signed and approved by: Jame Patel DO
== END | disposition home or self-care (01) ==
LOC: RADMAMWWP 11:09
PROVIDERS: ATTEND Family Medicine
DX: R92.2 Inconclusive mammogram (principal); R92.8 Other abnormal and inconclusive findings on diagnostic imaging of breast; R92.323 Mammographic fibroglandular density, bilateral breasts; Z78.0 Asymptomatic menopausal state
CPT/HCPCS: 77065; G0279; 77061